=== PATIENT | female | born 1995 | race Caucasian/White ===

== ENCOUNTER → 2016-07-25 | Outpatient (CLI) | payer BC | LOC: BMCIMAGING 12:27 | PROVIDERS: ATTEND Family Medicine | DX: R10.9 Unspecified abdominal pain (principal); R11.2 Nausea with vomiting, unspecified; N28.89 Other specified disorders of kidney and ureter ==

== ENCOUNTER 2016-07-26 11:46 | Emergency (ER) | payer BC ==
[2016-07-26] MEDS ORDERED: NS 1,000 ML IV ONE (12:56)
[2016-07-26 12:57] LABS: % IMMATURE GRANULYOCYTES 0.3 % (0.0-1.1); ABSOLUTE IMMATURE GRANULOCYTES 0.02 10^3/uL (0.00-0.10); ADD DIFF? NO; ADD MORPH? NO; ADD SCAN? NO; ATYPICAL LYMPHOCYTE FLAG 10 (0-99); FRAGMENT RBC FLAG 0 (0-99); HEMATOCRIT 41.4 % (38.0-47.0); HEMOGLOBIN 13.9 g/dL (12.6-16.3); LEFT SHIFT FLG 0 (0-99); LIPEMIA HEMOLYSIS FLAG 80 (0-99); MEAN CELL HEMOGLOBIN 29.4 pg (27.9-34.1); MEAN CELL HEMOGLOBIN CONCENTR. 33.6 g/dL (32.4-36.7); MEAN CELL VOLUME 87.5 fL (81.5-99.8); MEAN PLATELET VOLUME 11.5 fL (8.7-11.7); PLATELET CLUMPS FLAG 10 (0-99); PLATELET COUNT 244 10^3/uL (150-400); RED BLOOD CELL COUNT 4.73 10^6/uL (4.18-5.33); RED CELL DISTRIBUTION WIDTH 12.2 % (11.5-15.2)
[2016-07-26 13:12] LABS: ANION GAP 11 mEq/L (8-16); CARBON DIOXIDE 21 mEq/l (22-31); CHLORIDE 106 mEq/L (97-110); CREATININE 0.7 mg/dL (0.6-1.0); GLOMERULAR FILTRATION RATE > 60; GLUCOSE 82 mg/dL (70-100); POTASSIUM 4.4 mEq/L (3.5-5.2); SODIUM 138 mEq/L (134-144)
[2016-07-26 13:22] LABS: COLOR COLORLESS; LEUKOCYTE ESTERASE,URINE NEGATIVE (NEGATIVE); NITRITE,URINE NEGATIVE (NEGATIVE)
--- NOTE | 2016-07-26 14:22 | EDPHY ---
H & P Stated Complaint: "SHARP SHOOTING" ABD PAIN X6 DAYS, DX W/ CONSTIPATION AT [facility] Source: Patient Exam Limitations: No limitations - Personal History LMP (Females 10-55): 8-14 Days Ago Current Tetanus/Diphtheria Vaccine: Yes Current Tetanus Diphtheria and Acellular Pertussis (TDAP): Yes - Medical/Surgical History Hx Asthma: No Hx Chronic Respiratory Disease: No Hx Diabetes: No Hx Cardiac Disease: No Hx Renal Disease: No Hx Cirrhosis: No Hx Alcoholism: No Hx HIV/AIDS: No Hx Splenectomy or Spleen Trauma: No Other PMH: DENIES - Social History Smoking Status: Never smoked Time Seen by Provider: 07/26/16 12:19 HPI/ROS: CHIEF COMPLAINT: Abdominal pain HISTORY OF PRESENT ILLNESS: 21-year-old female presents emergency department complaining of abdominal pain and nausea x5 days. Patient was seen at urgent care twice last week and 1st diagnosed with a gastroenteritis, then diagnosed with constipation. Patient yesterday had a upright abdomen x-ray that showed moderate constipation, she took milk of magnesia, had a large bowel movement last night and had multiple episodes of diarrhea this morning. Patient reports continued lower abdominal pain and hand pain. She denies urinary urgency, frequency or dysuria, no vaginal discharge, she is not sexually active. Patient denies fevers. No cough or cold. No back pain. REVIEW OF SYSTEMS: A comprehensive 10 point review of systems is otherwise negative aside from elements mentioned in the history of present illness. (Nelda Drake) - Physical Exam Exam: Physical Exam Gen: Alert and Oriented, tearful HEENT: PERRL, moist mucous membranes NECK: no meningismus CV: regular rate and regular rhythm PULM: CTAB, no wheezes ABDOMEN: soft, diffuse tenderness to palpation, no masses, no rebound tenderness , no guarding, normal bowel sounds BACK: No CVA tenderness NEURO: Neurologically grossly intact EXTREMITIES: normal appearing SKIN: no rash or break in skin on exposed skin PSYCH: answers questions appropriately. (Nelda Drake) Constitutional: Initial Vital Signs Temperature (C) 36.6 C 07/26/16 11:49 Heart Rate 85 07/26/16 11:49 Respiratory Rate 14 07/26/16 11:49 Blood Pressure 129/90 H 07/26/16 11:49 O2 Sat (%) 98 07/26/16 11:49 O2 Delivery Mode Room Air Allergies/Adverse Reactions: No Known Allergies Allergy (Unverified 07/26/16 11:50) Home Medications: Medication Instructions Recorded Apri 28 Day Tablet 07/26/16 Ondansetron 07/26/16 Medical Decision Making - Diagnostics Imaging: Pelvic ultrasound- Impression: 1. Normal pelvic ultrasound. 2. Normal limited right lower quadrant abdominal ultrasound. A dilated appendix could not be visualized. The normal appendix, however, cannot be positively identified. Appendicitis is felt to be doubtful. If there is a high clinical suspicion for appendicitis then consider additional imaging with CT as clinically directed. These findings were discussed by telephone with Viral Drake NP at 1600 hrs. Dictated By: Hemal Patterson MD Right lower quadrant ultrasound- Impression: 1. Normal pelvic ultrasound. 2. Normal limited right lower quadrant abdominal ultrasound. A dilated appendix could not be visualized. The normal appendix, however, cannot be positively identified. Appendicitis is felt to be doubtful. If there is a high clinical suspicion for appendicitis then consider additional imaging with CT as clinically directed. These findings were discussed by telephone with Viral Drake NP at 1600 hrs. Dictated By: Hemal Patterson MD (Nelda Drake) ED Course/Re-evaluation: IV established, CBC, chemistry panel, and urinalysis obtained that are all unremarkable. Pelvic ultrasound and right lower quadrant ultrasound have been ordered. Labs and urine are unremarkable, pelvic ultrasound is negative for any abnormality, right lower quadrant ultrasound is performed and they are unable to visualize the appendix. There is stool in the cecum, there are no lymph nodes seen. Had a long discussion with the patient and her family about getting a CT abdomen pelvis with contrast to rule out appendicitis as this is the 3rd visit for this same pain. The patient would like to refuse this. I have given the patient a bowel regimen as her pain could be due to constipation. I have given her strict return precautions for worsening symptoms and a production support supervisor for follow-up. The patient is comfortable with this plan, her family is comfortable with this plan. Patient is nontoxic appearing, repeat abdominal exam shows no peritoneal signs. (Nelda Drake) Differential Diagnosis: The differential diagnosis for the patient's abdominal pain included but was not limited to ovarian cyst, pelvic inflammatory disease, ovarian torsion, urinary tract infection, ectopic , cholecystitis, and appendicitis. ( Nelda Drake) Other Provider: The patient was evaluated and managed by the Physician Training Manager/ Nurse Practitioner. My co-signature indicates that I have reviewed this chart and I agree with the findings and plan of care as documented. I am the secondary supervising physician. (Diane Toney) - Data Points Laboratory Results: Laboratory Results 07/26/16 12:44 07/26/16 12:44 Medications Given: Discontinued Medications Sodium Chloride (Ns) 1,000 mls @ 0 mls/hr IV ONCE ONE PRN Reason: Wide Open Stop: 07/26/16 12:57 Last Admin: 07/26/16 13:11 Dose: 1,000 mls Departure - Departure Disposition: Home, Routine, Self-Care Clinical Impression: Abdominal pain Condition: Good Instructions: Abdominal Pain (ED) Additional Instructions: Mix 1 bottle of Miralax with 1 gallon of gatorade. Take half of this mixture and drink 8 ounces every 20 minutes until gone. Repeat the following day if it does not produce bowel movements. Follow up with the production support supervisor. Call to schedule this appointment. Return to the ED for worsening symptoms, new symptoms or concerns. This is necessary to exclude the development of a more serious conditions such as appendicitis or other intra-abdominal emergency. Drink plenty of water. Referrals: Milo Nicole MD [Medical Doctor] - As per Instructions (Repair Specialist addiction treatment counselor )
[2016-07-26] MEDS ORDERED: IOPAMIDOL (ISOVUE-300) 100 ML BTL IV ONE (15:51)
[2016-07-26 16:45] VITALS: BP 135/73; PULSE 68; RESP 18; TEMP 98.2; O2SAT 97
== END 2016-07-26 16:41 | disposition home or self-care (01) ==
DX: R10.84 Generalized abdominal pain (principal)
CPT/HCPCS: Q9967